=== PATIENT | female | born 1980 | race Hispanic/Latino ===

== ENCOUNTER 2017-03-31 15:01 | Emergency (ER) | payer SELFPAY ==
[2017-03-31 16:18] VITALS: BP 125/81
--- NOTE | 2017-03-31 16:19 | Emergency Department Report ---
Entered by HERNANDEZ AGUIRRE, acting as scribe for RADHA BARNARD NP. Chief Complaint: Headache Stated Complaint: HEADACHE ON LFT SIDE HEAD X 5 DAYS/LUMP ON HEAD Time Seen by Provider: 03/31/17 16:18 - HPI History of Present Illness: 36 y/o female, c/o of constant SANCHEZ. Associated nausea PT states she feels a knot on the top of her head - ROS Review of Systems: +SANCHEZ +changes in speech - Exam Physical Exam: Constitutional: The patient is a well-developed, well-nourished, in no apparent distress. Patient is alert and oriented x3. HEENT: 1 cm palpable mass on the top of the head GCS 15, no focal weakness, steady gait MSE screening note: Focused history and physical exam performed. Due to findings the following was ordered: ct ED Disposition for MSE Condition: Stable This documentation as recorded by the scribe,HERNANDEZ AGUIRRE,accurately reflects the service I personally performed and the decisions made by me,RADHA BARNARD [employer].
== END 2017-03-31 23:10 | disposition left against medical advice (07) ==
LOC: ED 15:01
DX: R51 Headache (principal); R11.0 Nausea; Z53.21 Procedure and treatment not carried out due to patient leaving prior to being seen by health care provider

== ENCOUNTER 2020-06-16 23:40 | Emergency (ER) | payer MEDICAID | END 2020-06-17 02:00 | disposition left against medical advice (07) | LOC: ED 23:40 | DX: N94.89 Other specified conditions associated with female genital organs and menstrual cycle (principal); Z53.21 Procedure and treatment not carried out due to patient leaving prior to being seen by health care provider ==

== ENCOUNTER 2020-09-19 17:52 | Emergency (ER) | payer MEDICAID, OTHER ==
[2020-09-19 18:38] VITALS: BP 134/92
--- NOTE | 2020-09-19 19:34 | Emergency Department Report ---
Chief Complaint: Dental/Oral Stated Complaint: RT SIDE TOOTHACHE/PAIN - HPI History of Present Illness: 40-year-old female presents to the emergency room complaining of last tooth on her right lower jaw that started today. Patient reports that she needs to have her tooth pulled as it is partially impacted and broken. Patient has not taken anything for pain. She denies any swelling of her jaw. Denies any injury to her jaw. - Exam Vital Signs: Vital Signs 09/19/20 18:35 Temperature 98.5 F Pulse Rate 108 H Respiratory 18 Rate Blood Pressure 134/92 [Right] O2 Sat by Pulse 98 Oximetry Physical Exam: Alert and oriented x3 no acute distress nontoxic in appearance Tooth #1 decayed to the gum on the lingual area no gingiva enlargement or gum enlargement no discharge no abscess appreciated Patient is amatory without difficulties MSE screening note: Focused history and physical exam performed. Due to findings the following was ordered: 40-year-old female presents to the emergency room complaining of last tooth on her right lower jaw that started today. Patient reports that she needs to have her tooth pulled as it is partially impacted and broken. Patient has not taken anything for pain. She denies any swelling of her jaw. Denies any injury to her jaw. Recommend to take [id number] ibuprofen or Tylenol for pain follow-up with a dentist. ED Disposition for MSE Disposition: MED SCREENING EXAM-LEFT Is pt being admited?: No Does the pt Need Aspirin: No Condition: Stable Additional Instructions: Recommend ibuprofen and Tylenol follow-up with a dentist. Referrals: [facility] [Outside] - 3-5 Days [facility] [Outside] - 3-5 Days Forms: Work/School Release Form(ED)
== END 2020-09-19 19:33 | disposition left against medical advice (07) ==
LOC: ED 17:52
DX: K08.89 Other specified disorders of teeth and supporting structures (principal); Z53.21 Procedure and treatment not carried out due to patient leaving prior to being seen by health care provider

== ENCOUNTER 2020-12-13 14:48 | Emergency (ER) | payer SELFPAY ==
[2020-12-13 14:57] VITALS: BP 150/106
[2020-12-13 16:07] LABS: Bacteria,Urine 4+ /HPF (Negative); Bilirubin,Urine NEG (Negative); Blood,Urine NEG (Negative); Color,Urine Amber (Yellow); Mucus,Urine FEW /HPF
[2020-12-13 16:13] LABS: Basophils # (Auto) 0.1 K/mm3 (0.0-0.1); Basophils % (Auto) 0.5 % (0.0-1.8); Eosinophils # (Auto) 0.2 K/mm3 (0.0-0.4); Eosinophils % (Auto) 1.6 % (0.0-4.3); Hematocrit 40.5 % (30.3-42.9); Hemoglobin 13.5 gm/dl (10.1-14.3); Lymphocytes # (Auto) 3.4 K/mm3 (1.2-5.4); Lymphocytes % (Auto) 29.3 % (13.4-35.0); Mean Corpuscular HGB Conc 33 % (30-34); Mean Corpuscular Volume 92 fl (79-97); Monocytes # (Auto) 1.1 K/mm3 (0.0-0.8); Monocytes % (Auto) 9.2 % (0.0-7.3); Platelet Count 391 K/mm3 (140-440); Red Blood Count 4.42 M/mm3 (3.65-5.03)
--- NOTE | 2020-12-13 16:32 | Emergency Department Report ---
ED Female HPI - General Chief complaint: Urogenital-Female Stated complaint: CRAMPING AND DISCHARGE Time Seen by Provider: 12/13/20 14:57 Source: patient Mode of arrival: Ambulatory Limitations: No Limitations - History of Present Illness Initial comments: pt is a 40 yo female who presents to the ED with c/o clear vaginal discharge that began two days ago. she states she is also having left sided pelvic pain. she denies any v/d, fever, urinary symptoms. she denies any concerns for STDs. 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 she states she has not seen her HOSPITAL MANAGER regarding her symptoms. - Related Data Previous Rx's Medication Instructions Recorded Last Taken Type Naproxen [EC-Naproxen] 500 mg PO BID PRN #20 tablet. 12/13/20 Unknown Rx metroNIDAZOLE [Flagyl] 500 mg PO BID 7 Days #14 tab 12/13/20 Unknown Rx Allergies Allergy/AdvReac Type Severity Reaction Status Date / Time latex Allergy Unknown Verified 12/13/20 14:52 morphine Allergy Hives Verified 12/13/20 14:52 ED Review of Systems ROS: Stated complaint: CRAMPING AND DISCHARGE Other details as noted in HPI Comment: All other systems reviewed and negative ED Past Medical Hx - Past Medical History Additional medical history: OBESITY - Surgical History Additional Surgical History: LEFT EYE --"LAZY EYE CORRECTED". CYST REMOVED FROM OVARY - Social History Smoking Status: Never Smoker Substance Use Type: Alcohol - Medications Home Medications: Home Medications Medication Instructions Recorded Confirmed Last Taken Type Naproxen [EC-Naproxen] 500 mg PO BID PRN #20 tablet. 12/13/20 Unknown Rx metroNIDAZOLE [Flagyl] 500 mg PO BID 7 Days #14 tab 12/13/20 Unknown Rx ED Physical Exam - General Limitations: No Limitations General appearance: alert, in no apparent distress - Head Head exam: Present: atraumatic, normocephalic - Eye Eye exam: Present: normal appearance - ENT ENT exam: Present: mucous membranes moist - Respiratory Respiratory exam: Present: normal lung sounds bilaterally. Absent: respiratory distress, wheezes, rales, rhonchi, stridor, chest wall tenderness, accessory muscle use, decreased breath sounds, prolonged expiratory - Cardiovascular Cardiovascular Exam: Present: regular rate, normal rhythm, normal heart sounds. Absent: systolic murmur, diastolic murmur, rubs, gallop - GI/Abdominal GI/Abdominal exam: Present: soft, normal bowel sounds. Absent: distended, tenderness, guarding, rebound, rigid - Neurological Exam Neurological exam: Present: alert, oriented X3 - Psychiatric Psychiatric exam: Present: normal affect, normal mood - Skin Skin exam: Present: warm, dry, intact ED Course Vital Signs 12/13/20 12/13/20 14:55 14:56 Temperature 98.3 F Pulse Rate 106 H Respiratory 20 Rate Blood Pressure 150/106 O2 Sat by Pulse 97 Oximetry ED Medical Decision Making - Lab Data Result diagrams: 12/13/20 15:11 12/13/20 15:11 Labs 12/13/20 12/13/20 12/13/20 15:11 15:11 15:11 WBC 11.7 H RBC 4.42 Hgb 13.5 Hct 40.5 MCV 92 MCH 31 MCHC 33 RDW 13.0 L Plt Count 391 Lymph % (Auto) 29.3 Walton % (Auto) 9.2 H Eos % (Auto) 1.6 Baso % (Auto) 0.5 Lymph # (Auto) 3.4 Walton # (Auto) 1.1 H Eos # (Auto) 0.2 Baso # (Auto) 0.1 Seg Neutrophils % 59.4 Seg Neutrophils # 6.9 Sodium 137 Potassium 3.5 L Chloride 101.3 Carbon Dioxide 25 Anion Gap 14 BUN 14 Creatinine 0.7 Estimated GFR > 60 BUN/Creatinine Ratio 20 Glucose 97 Calcium 8.9 Total Bilirubin 0.60 AST 19 ALT 15 Alkaline Phosphatase 92 NT-Pro-B Natriuret Pep Total Protein 7.0 Albumin 4.0 Albumin/Globulin Ratio 1.3 Lipase 19 HCG, Qual Negative Urine Color Urine Turbidity Urine pH Ur Specific Baldwin Urine Protein Urine Glucose (UA) Urine Ketones Urine Blood Urine Nitrite Urine Bilirubin Urine Urobilinogen Ur Leukocyte Esterase Urine WBC (Auto) Urine RBC (Auto) U Epithel Cells (Auto) Urine Bacteria (Auto) Urine Mucus 12/13/20 12/13/20 15:19 15:40 WBC RBC Hgb Hct MCV MCH MCHC RDW Plt Count Lymph % (Auto) Walton % (Auto) Eos % (Auto) Baso % (Auto) Lymph # (Auto) Walton # (Auto) Eos # (Auto) Baso # (Auto) Seg Neutrophils % Seg Neutrophils # Sodium Potassium Chloride Carbon Dioxide Anion Gap BUN Creatinine Estimated GFR BUN/Creatinine Ratio Glucose Calcium Total Bilirubin AST ALT Alkaline Phosphatase NT-Pro-B Natriuret Pep 59.28 Total Protein Albumin Albumin/Globulin Ratio Lipase HCG, Qual Urine Color Micaela Urine Turbidity Clear Urine pH 5.0 Ur Specific Baldwin 1.028 Urine Protein 30 mg/dl Urine Glucose (UA) Neg Urine Ketones Neg Urine Blood Neg Urine Nitrite Neg Urine Bilirubin Neg Urine Urobilinogen 2.0 Ur Leukocyte Esterase Mod Urine WBC (Auto) 4.0 Urine RBC (Auto) 2.0 U Epithel Cells (Auto) 5.0 Urine Bacteria (Auto) 4+ Urine Mucus Few - Radiology Data Radiology results: report reviewed Ordering Physician: VIDA VILLA Date of Service: 12/13/20 Procedure(s): US transvaginal Accession Number(s): [id number] cc: VIDA VILLA ULTRASOUND PELVIS INDICATION / CLINICAL INFORMATION: pelvic pain. TECHNIQUE: Transabdominal and Transvaginal. Duplex Color Doppler used: Yes. COMPARISON: None available FINDINGS: UTERUS: Present. - Appearance (if present): No significant abnormality. - Size in cm (if present): 8.4 x 4.5 x 5.5. - Endometrial Complex (if present): No significant abnormality.. Thickness in cm (if measured) = 1.8 - Mass lesions: None. - Additional findings: None. RIGHT ADNEXA: Surgically absent right ovary per patient LEFT ADNEXA: No significant ovarian cyst or mass. Dominant follicle noted. Normal color Doppler blood flow. URINARY BLADDER: No significant abnormality. FREE FLUID: None. ADDITIONAL FINDINGS: None. IMPRESSION: 1. No acute abnormality. Signer Name: Jared Chong MD Signed: 12/13/2020 4:28 PM Workstation Name: [id number] Transcribed By: OMARI Dictated By: Jared Chong MD Electronically Authenticated By: Jared Chong MD Signed Date/Time: 12/13/201627 DD/ 26 TD/TT: - Medical Decision Making pt is a 40 yo female who presents to the ED with c/o clear vaginal discharge th at began two days ago. she states she is also having left sided pelvic pain. she denies any v/d, fever, urinary symptoms. she denies any concerns for STDs. 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 she states she has not seen her HOSPITAL MANAGER regarding her symptoms. She will triage vitals with tachycardia, on auscultation heart rate is normal, repeat in exam room and heart rate is 89 bpm. No abdominal tenderness on exam. Labs are stable. hCG is negative. UA without evidence of significant UTI. Pelvic ultrasound: 1. No acute abnormality. Patient continues to deny concerns for STD, she does not want STD treatment, she declines pelvic examination at this time. pt given prescription for flagyl for vaginitis and naproxen for pain. advised pt please take medication as prescribed. Follow-up with a primary care doctor. Follow-up with HOSPITAL MANAGER. Return to emergency room for new or symptoms Critical care attestation.: If time is entered above; I have spent that time in minutes in the direct care of this critically ill patient, excluding procedure time. ED Disposition Clinical Impression: Pelvic pain, Vaginal discharge Disposition: TO HOME OR SELFCARE Is pt being admited?: No Does the pt Need Aspirin: No Condition: Stable Instructions: Pelvic Pain, Female, Vaginitis Additional Instructions: Please take medication as prescribed. Follow-up with a primary care doctor. Follow-up with HOSPITAL MANAGER. Return to emergency room for new or symptoms. 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
[2020-12-13 16:34] LABS: Alanine Aminotransferase 15 units/L (7-56); Blood Urea Nitrogen 14 mg/dL (7-17); Calcium 8.9 mg/dL (8.4-10.2); Hemolysis Index 0
[2020-12-13 16:35] LABS: BUN/Creatinine Ratio 20
--- NOTE | 2020-12-13 16:35 | Ultrasound Report ---
ULTRASOUND PELVIS INDICATION / CLINICAL INFORMATION: pelvic pain. TECHNIQUE: Transabdominal and Transvaginal. Duplex Color Doppler used: Yes. COMPARISON: None available FINDINGS: UTERUS: Present. - Appearance (if present): No significant abnormality. - Size in cm (if present): 8.4 x 4.5 x 5.5. - Endometrial Complex (if present): No significant abnormality.. Thickness in cm (if measured) = 1.8 - Mass lesions: None. - Additional findings: None. RIGHT ADNEXA: Surgically absent right ovary per patient LEFT ADNEXA: No significant ovarian cyst or mass. Dominant follicle noted. Normal color Doppler blood flow. URINARY BLADDER: No significant abnormality. FREE FLUID: None. ADDITIONAL FINDINGS: None. IMPRESSION: 1. No acute abnormality. Signer Name: Jared Chong MD Signed: 12/13/2020 4:28 PM Workstation Name: [id number]
== END 2020-12-13 17:30 | disposition home or self-care (01) ==
LOC: ED 14:48
DX: R10.2 Pelvic and perineal pain (principal); N89.8 Other specified noninflammatory disorders of vagina; Z79.899 Other long term (current) drug therapy; Z91.040 Latex allergy status; Z88.6 Allergy status to analgesic agent
CPT/HCPCS: 36415; 76830; 76856; 80053; 81001; 83690; 83880; 84703; 85025

== ENCOUNTER 2021-05-15 11:50 | Emergency (ER) | payer SELFPAY ==
--- NOTE | 2021-05-15 13:25 | Emergency Department Report ---
ED General Adult HPI - General Chief complaint: Arrhythmia/Palpitations Stated complaint: HEART PALPITATION Time Seen by Provider: 05/15/21 12:53 Source: patient Mode of arrival: Ambulatory Limitations: No Limitations - History of Present Illness Initial comments: Patient is a 40-year-old female presents emergency room complaints of a sore throat that began 5 days ago. She has associated frequent dry cough. She states that she has voice hoarseness. She is able to tolerate p.o. intake. She denies any fever, nausea, vomiting, diarrhea, shortness of breath, chest pain, abdominal pain. Patient states that she has a past medical history of anxiety. She states whenever she feels anxious she feels her heart rate increased. She states that she does not have any palpitations currently. She has no chest pain, no shortness of breath, no leg swelling, no hemoptysis. - Related Data Previous Rx's Medication Instructions Recorded Last Taken Type Naproxen [EC-Naproxen] 500 mg PO BID PRN #20 tablet. 12/13/20 Unknown Rx metroNIDAZOLE [Flagyl] 500 mg PO BID 7 Days #14 tab 12/13/20 Unknown Rx Benzonatate [Tessalon Perles] 100 mg PO Q8HR PRN #12 capsule 05/15/21 Unknown Rx Nystas/Diphen/Xyl Visc/Mylanta 30 ml MM Q4H PRN #300 ml 05/15/21 Unknown Rx [Magic Mouthwash] Prednisone [predniSONE 10 mg 10 mg PO .TAPER #1 tab.ds.pk 05/15/21 Unknown Rx (6-Day Pack, 21 Tabs)] Allergies Allergy/AdvReac Type Severity Reaction Status Date / Time latex Allergy Unknown Verified 05/15/21 12:03 morphine Allergy Hives Verified 05/15/21 12:03 ED Review of Systems ROS: Stated complaint: HEART PALPITATION Other details as noted in HPI Comment: All other systems reviewed and negative ED Past Medical Hx - Past Medical History Additional medical history: OBESITY - Surgical History Additional Surgical History: LEFT EYE --"LAZY EYE CORRECTED". CYST REMOVED FROM OVARY - Social History Smoking Status: Never Smoker Substance Use Type: Alcohol - Medications Home Medications: Home Medications Medication Instructions Recorded Confirmed Last Taken Type Naproxen [EC-Naproxen] 500 mg PO BID PRN #20 tablet. 12/13/20 Unknown Rx metroNIDAZOLE [Flagyl] 500 mg PO BID 7 Days #14 tab 12/13/20 Unknown Rx Benzonatate [Tessalon Perles] 100 mg PO Q8HR PRN #12 capsule 05/15/21 Unknown Rx Nystas/Diphen/Xyl Visc/Mylanta 30 ml MM Q4H PRN #300 ml 05/15/21 Unknown Rx [Magic Mouthwash] Prednisone [predniSONE 10 mg 10 mg PO .TAPER #1 tab.ds.pk 05/15/21 Unknown Rx (6-Day Pack, 21 Tabs)] ED Physical Exam - General Limitations: No Limitations General appearance: alert, in no apparent distress - Head Head exam: Present: atraumatic, normocephalic - Eye Eye exam: Present: normal appearance - ENT ENT exam: Present: normal orophraynx, mucous membranes moist, TM's normal bilaterally, normal external ear exam, other (voice hoarseness, no tonsillar hypertrophy or exudates, uvula is midline, no uvular edema or deviation, no trismus, no tongue elevation, no submandibular edema) - Respiratory Respiratory exam: Present: normal lung sounds bilaterally. Absent: respiratory distress, wheezes, rales, rhonchi, stridor, chest wall tenderness, accessory muscle use, decreased breath sounds, prolonged expiratory - Cardiovascular Cardiovascular Exam: Present: regular rate, normal rhythm, normal heart sounds. Absent: systolic murmur, diastolic murmur, rubs, gallop - Neurological Exam Neurological exam: Present: alert, oriented X3 - Psychiatric Psychiatric exam: Present: normal affect, normal mood - Skin Skin exam: Present: warm, dry, intact ED Course Vital Signs 05/15/21 05/15/21 12:05 14:15 Temperature 97.9 F Pulse Rate 106 H 100 H Respiratory 18 16 Rate Blood Pressure 137/96 Blood Pressure 128/86 [Left] O2 Sat by Pulse 97 98 Oximetry ED Medical Decision Making - Lab Data Vital Signs 05/15/21 05/15/21 12:05 14:15 Temperature 97.9 F Pulse Rate 106 H 100 H Respiratory 18 16 Rate Blood Pressure 137/96 Blood Pressure 128/86 [Left] O2 Sat by Pulse 97 98 Oximetry - EKG Data EKG shows normal: sinus rhythm, axis, intervals, QRS complexes, ST-T waves Rate: normal - Medical Decision Making Patient is a 40-year-old female presents emergency room complaints of a sore throat that began 5 days ago. She has associated frequent dry cough. She states that she has voice hoarseness. She is able to tolerate p.o. intake. She denies any fever, nausea, vomiting, diarrhea, shortness of breath, chest pain, abdominal pain. Patient states that she has a past medical history of anxiety. She states whenever she feels anxious she feels her heart rate increased. She states that she does not have any palpitations currently. She has no chest pain, no shortness of breath, no leg swelling, no hemoptysis. Initial vitals with elevated heart rate which improved upon repeat. On exam:voice hoarseness, no tonsillar hypertrophy or exudates, uvula is midline, no uvular edema or deviation, no trismus, no tongue elevation, no submandibular edema. EKG ordered prior to my examination and is within normal limits, normal sinus rhythm with a regular rate. On exam:voice hoarseness, no tonsillar hypertrophy or exudates, uvula is midline, no uvular edema or deviation, no trismus, no tongue elevation, no submandibular edema. Symptoms and examination appear most consistent with laryngitis. Patient given prescription for medications. Advised patient Please take medication as prescribed. Please rest your voice and avoid talking. May eat warm soup broth and drink warm tea. Gargle with warm salt water. May use throat lozenges. Follow-up with your primary care doctor for reexamination. Return to emergency room for any new or worsening symptoms. Critical care attestation.: If time is entered above; I have spent that time in minutes in the direct care of this critically ill patient, excluding procedure time. ED Disposition Clinical Impression: Laryngitis, Anxiety Disposition: DC-01 TO HOME OR SELFCARE Is pt being admited?: No Does the pt Need Aspirin: No Condition: Stable Instructions: Managing Anxiety, Adult, Laryngitis, [id number] Additional Instructions: Please take medication as prescribed. Please rest your voice and avoid talking. May eat warm soup broth and drink warm tea. Gargle with warm salt water. May use throat lozenges. Follow-up with your primary care doctor for reexamination. Return to emergency room for any new or worsening symptoms. Prescriptions: Nystas/Diphen/Xyl Visc/Mylanta [Magic Mouthwash] 30 ml MM Q4H PRN #300 ml PRN Reason: sore throat Prednisone [predniSONE 10 mg (6-Day Pack, 21 Tabs)] 10 mg PO .TAPER #1 tab.ds.pk Benzonatate [Tessalon Perles] 100 mg PO Q8HR PRN #12 capsule PRN Reason: cough Referrals: your, primary care doctor [Other] - 2-3 Days Time of Disposition: 13:23 Print Language: JORDANIAN
[2021-05-15 14:16] VITALS: BP 128/86
--- NOTE | 2021-05-17 17:33 | Electrocardiograph Report ---
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
== END 2021-05-15 14:19 | disposition home or self-care (01) ==
LOC: ED 11:50
DX: J04.0 Acute laryngitis (principal); F41.9 Anxiety disorder, unspecified; E66.01 Morbid (severe) obesity due to excess calories; Z79.899 Other long term (current) drug therapy; Z98.890 Other specified postprocedural states; Z88.6 Allergy status to analgesic agent; Z91.040 Latex allergy status; Z68.32 Body mass index [BMI] 32.0-32.9, adult
CPT/HCPCS: 93005; 99281